=== PATIENT | female | born 1980 | race Caucasian/White ===

== ENCOUNTER 2024-11-14 14:05 | Emergency (ER) | payer MEDICARE, SELFPAY ==
[2024-11-14] MEDS ORDERED: Albuterol 2.5 MG (0.5 mL) NEB ONE (15:07)
[2024-11-14] MEDS ORDERED: Magnesium 2 GM/50 ML BAG (IN WATER) ONE (15:08)
[2024-11-14] MEDS ORDERED: Dexamethasone 10 MG/ML VIAL ONE (15:09)
[2024-11-14 15:13] LABS: #Basophils Less than 0.03 10x3/uL (0.0-0.2); #Eosinophils 0.15 10x3/uL (0.0-0.7); #Monocytes 0.27 10x3/uL (0.11-0.59); #Neutrophils 3.02 10x3/uL (1.40-6.50); %Basophils 0.2 % (0.0-1.0); %Eosinophils 3.2 % (0.0-10.0); %Lymphocytes 25.1 % (21.0-51.0); %Monocytes 5.8 % (0.0-10.0); %Neutrophils 65.5 % (42.0-75.0); Hematocrit 41.0 % (36.0-47.0); Hemoglobin 12.9 g/dL (12.0-16.0); Mean Corpuscular Hemoglobin 27.0 pg (27.0-31.0); Mean Corpuscular Volume 85.8 fL (78.0-98.0); Platelet Count 244 10x3/uL (130-400); Red Blood Cell (RBC) Count 4.78 mill/uL (4.20-5.40); White Blood Cell (WBC) Count 4.62 10x3/uL (4.8-10.8)
[2024-11-14 15:45] LABS: ALT (SGPT) 12 U/L (Less than 34); AST (SGOT) 19 U/L (11-34); Albumin 4.1 g/dL (3.1-4.5); Alkaline Phosphatase 78 U/L (40-110); Anion Gap 12 mmol/L (10-20); BUN (Urea Nitrogen) 22 mg/dL (7.0-18.7); Bilirubin, Total 0.2 mg/dL (0.3-1.2); Calc. Creatinine Clearance 0 mL/min (70-130); Calcium 8.8 mg/dL (7.8-10.44); Carbon Dioxide 25 mmol/L (22-29); Chloride 107 mmol/L (98-107); Globulin 3.2 g/dL (2.4-3.5); Glucose 135 mg/dL (70-105); Potassium 3.9 mmol/L (3.5-5.1); Sodium 140 mmol/L (136-145)
== END 2024-11-14 16:32 | disposition home or self-care (01) ==
LOC: ERS 14:05
DX: J20.9 Acute bronchitis, unspecified (principal)
CPT/HCPCS: 71045; 71275; 80053; 84484; 85025; 85379; 87428; 93005; 96365; 96375; 99285; J1100; J3475; J7611; J7620

== ENCOUNTER 2025-01-09 08:08 | Emergency (ER) | payer MEDICARE ==
[2025-01-09] MEDS ORDERED: Dexamethasone 10 MG/ML VIAL ONE (09:15)
[2025-01-09] MEDS ORDERED: Acetaminophen 500 MG TAB ONE (09:15)
[2025-01-09] MEDS ORDERED: Albuterol 200 PUFF (6.7GM INHALER) ONE (09:15)
[2025-01-09 09:17] LABS: #Basophils Less than 0.03 10x3/uL (0.0-0.2); #Eosinophils 0.10 10x3/uL (0.0-0.7); #Monocytes 0.28 10x3/uL (0.11-0.59); #Neutrophils 1.82 10x3/uL (1.40-6.50); %Basophils 0.6 % (0.0-1.0); %Eosinophils 2.8 % (0.0-10.0); %Lymphocytes 38.8 % (21.0-51.0); %Monocytes 7.7 % (0.0-10.0); %Neutrophils 50.1 % (42.0-75.0); Hematocrit 40.2 % (36.0-47.0); Hemoglobin 12.9 g/dL (12.0-16.0); Mean Corpuscular Hemoglobin 27.1 pg (27.0-31.0); Mean Corpuscular Volume 84.5 fL (78.0-98.0); Platelet Count 233 10x3/uL (130-400); Red Blood Cell (RBC) Count 4.76 mill/uL (4.20-5.40); White Blood Cell (WBC) Count 3.63 10x3/uL (4.8-10.8)
[2025-01-09 09:37] LABS: BHCG - Serum Negative (NEGATIVE); Pregs Control Background? CLEAR/WHITE (CLR/WHITE); Pregs Control Bar Appear? YES (CONTROL BAR)
[2025-01-09 09:44] LABS: ALT (SGPT) 12 U/L (Less than 34); AST (SGOT) 21 U/L (11-34); Albumin 4.3 g/dL (3.1-4.5); Alkaline Phosphatase 69 U/L (40-110); Anion Gap 13 mmol/L (10-20); BUN (Urea Nitrogen) 17 mg/dL (7.0-18.7); Bilirubin, Total 0.2 mg/dL (0.3-1.2); Calc. Creatinine Clearance 0 mL/min (70-130); Calcium 9.4 mg/dL (7.8-10.44); Carbon Dioxide 25 mmol/L (22-29); Chloride 108 mmol/L (98-107); Globulin 2.8 g/dL (2.4-3.5); Glucose 57 mg/dL (70-105); Potassium 4.1 mmol/L (3.5-5.1); Sodium 142 mmol/L (136-145)
[2025-01-09] MEDS ORDERED: Iopamidol-370 76% 500 ML MDV (1 ML CHARGE) ONE (10:14)
== END 2025-01-09 13:05 | disposition home or self-care (01) ==
LOC: ERS 08:08
DX: R07.9 Chest pain, unspecified (principal); E16.2 Hypoglycemia, unspecified; R91.8 Other nonspecific abnormal finding of lung field; Z55.6 Problems related to health literacy
CPT/HCPCS: 71046; 71275; 80053; 82962; 84484; 84703; 85025; 93005; 93971; J1100; 36416; Q9967